=== PATIENT | female | born 1995 | race African-American/Black ===

== ENCOUNTER 2021-12-20 22:09 | Emergency (ER) | payer OTHER, SELFPAY ==
[2021-12-21] MEDS ORDERED: METRONIDAZOLE 500mg IVPB 500 MG/100 ML BAG IV ONE (00:08)
[2021-12-21] MEDS ORDERED: Levofloxacin 750mg IV 750 MG/150 ML BAG IV ONE (00:08)
[2021-12-21] MEDS ORDERED: ONDANSETRON 4 MG/2 ML VIAL ONE (00:08)
[2021-12-21] MEDS ORDERED: MORPHINE 2 MG/ML SYR ONE (00:08)
[2021-12-21] MEDS ORDERED: NA CHLORIDE 0.9% 1,000 ML ONE (00:08)
[2021-12-21 00:20] LABS: Urine Blood 2+ (Negative); Urine Glucose Negative (Negative); Urine Protein Negative (Negative); Urine Specific Gravity <=1.005 (1.005-1.030); Urine pH 5.5 (5.0-7.0)
[2021-12-21] MEDS ORDERED: LIDOCAINE 1% W/EPI 1:100,000 MDV 50 ML VIAL ONE (00:44)
[2021-12-21 01:02] LABS: Absolute Lymphocytes (CBC) 2.5 K/uL (0.7-4.9); Hematocrit 23.1 % (36.0-45.0); Lymphocytes % 14.8 % (15.3-44.8); RBC Red Blood Cell Count 4.04 M/uL (3.86-4.86)
[2021-12-21 01:22] LABS: Albumin 3.7 g/dL (3.4-5.0); Bilirubin Total 0.4 mg/dL (0.2-1.0); Protein, Total 8.7 g/dL (6.4-8.2)
[2021-12-21 01:28] LABS: Potassium 2.9 mmol/L (3.5-5.1)
--- NOTE | 2021-12-21 01:46 | ER ---
Nurse's Notes [facility] Name: Tiffany Clarke Age: 26 yrs Sex: Female : 1995 Arrival Date: 12/20/2021 Time: 22:12 Bed 19 Private MD: Diagnosis: Pilonidal cyst with abscess;Iron deficiency anemia, unspecified;Hypokalemia Presentation: 12/20 22:17 Chief complaint: Patient states: Cyst on tailbone. C/O severe pain. Coronavirus screen: ld1 At this time, the client does not indicate any symptoms associated with coronavirus-19. Ebola Screen: No symptoms or risks identified at this time. Initial Sepsis Screen: Does the patient meet any 2 criteria? No. Patient's initial sepsis screen is negative. Does the patient have a suspected source of infection? No. Patient's initial sepsis screen is negative. Risk Assessment: Do you want to hurt yourself or someone else? Patient reports no desire to harm self or others. Onset of symptoms was December 20, 2021. 22:17 Method Of Arrival: Ambulatory ld1 22:17 Acuity: JAMES 4 ld1 Triage Assessment: 22:18 General: Appears in no apparent distress. uncomfortable, Behavior is calm, cooperative, ld1 appropriate for age. Pain: Complains of pain in coccyx Pain does not radiate. Pain currently is 8 out of 10 on a pain scale. EENT: No signs and/or symptoms were reported regarding the EENT system. Neuro: Level of Consciousness is awake, alert, obeys commands, Oriented to person, place, time, situation. Respiratory: Airway is patent Respiratory effort is even, unlabored. Derm: Abscess located on buttocks. 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 - Social history:: Smoking status: Reported history of juuling and/or vaping. Patient/guardian denies using alcohol. - Family history:: not pertinent. Screenin:58 Abuse screen: Denies threats or abuse. Denies injuries from another. Nutritional kd3 screening: No deficits noted. Tuberculosis screening: No symptoms or risk factors identified. Fall Risk Vital Signs: 22:17 BP 124 / 82; Pulse 167; Resp 18; Temp 98.3(TE); Pulse Ox 99% on R/A; Weight 95.25 kg; ld1 Height 5 ft. 3 in. (160.02 cm); Pain 8/10; 12/21 00:15 Pulse 82; kd3 12/20 22:17 Body Mass Index 37.20 (95.25 kg, 160.02 cm) ld1 ED Course: 12/20 22:12 Patient arrived in ED. jj6 22:18 Triage completed. ld1 22:18 Arm band placed on right wrist. ld1 23:43 Gianluca Enrique MD is Attending Physician. elpidio 23:58 Hannah Morton, DIANN is Primary Nurse. kd3 23:58 Inserted saline lock: 20 gauge in left antecubital area, using aseptic technique. Blood kd3 collected. 23:59 Patient has correct armband on for positive identification. kd3 12/21 01:28 Notified ED physician of a critical lab result(s). Hgb 6.8, Potassium 2.9. lp1 01:45 Dawson Urban MD is Referral Physician. elpidio 01:45 Beverly De La Paz MD is Referral Physician. elpidio 01:45 Carole Arzola MD is Referral Physician. elpidio 02:21 No provider procedures requiring assistance completed. IV discontinued, intact, sm5 bleeding controlled, No redness/swelling at site. Pressure dressing applied. Administered Medications: 00:13 Drug: Zofran (Ondansetron) 4 mg Route: IVP; Site: left antecubital; kd3 00:14 Drug: NS 0.9% 1000 ml Route: IV; Rate: 1 bolus; Site: left antecubital; kd3 00:14 Drug: Flagyl (metroNIDAZOLE) 500 mg Volume: 100 ml; Route: IVPB; Rate: 200 ml/hr; kd3 Infused Over: 30 mins; Site: left antecubital; 00:14 Drug: morphine 2 mg Route: IVP; Site: left antecubital; kd3 00:29 Drug: levofloxacin 750 mg Volume: 150 ml; Route: IVPB; Infused Over: 90 mins; Site: kd3 left antecubital; 02:11 Drug: Potassium Effervescent Tablet 50 mEq Route: PO; kd3 Medication: 00:34 VIS not applicable for this client. kd3 Outcome: 01:45 Discharge ordered by . elpidio 02:21 Discharged to home ambulatory. 5 02:21 Condition: stable 02:21 Discharge instructions given to patient, Instructed on discharge instructions, follow up and referral plans. medication usage, Demonstrated understanding of instructions, follow-up care, medications, Prescriptions given X 4. 02:21 Patient left the ED. sm5 Signatures: Gianluca Enrique MD MD cha Pena, Laura, RN RN lp1 Deepa Rose RN RN ld1 Desiree Bhardwaj Kyli RN RN kd3 Kaya Naranjo RN RN sm5
--- NOTE | 2021-12-21 01:46 | EDPHYS ---
Physician Documentation [facility] Name: Tiffany Clarke Age: 26 yrs Sex: Female : 1995 Arrival Date: 12/20/2021 Time: 22:12 Bed 19 Private MD: ED Physician Gianluca Enrique HPI: 12/21 00:42 This 26 yrs old Black Female presents to ER via Ambulatory with complaints of Cyst. elpidio 00:42 The patient presents with an abscess of the coccyx. Description: The affected area is elpidio moderate sized, localized, draining. Onset: The symptoms/episode began/occurred 5 day(s) ago. Possible cause(s): unknown. Associated signs and symptoms: Pertinent positives: drainage, erythema. Modifying factors: the symptoms are alleviated by nothing, the symptoms are aggravated by nothing. Severity of symptoms: At their worst the symptoms were moderate, in the emergency department the symptoms are unchanged. The patient has not experienced similar symptoms in the past. 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 - Social history:: Smoking status: Reported history of juuling and/or vaping. Patient/guardian denies using alcohol. - Family history:: not pertinent. ROS: 12/21 00:42 Constitutional: Negative for fever, chills, and weight loss, Eyes: Negative for injury, elpidio pain, redness, and discharge, ENT: Negative for injury, pain, and discharge, Neck: Negative for injury, pain, and swelling, Cardiovascular: Negative for chest pain, palpitations, and edema, Respiratory: Negative for shortness of breath, cough, wheezing, and pleuritic chest pain, Abdomen/GI: Negative for abdominal pain, nausea, vomiting, diarrhea, and constipation, Back: Negative for injury and pain, : Negative for injury, bleeding, discharge, and swelling, MS/Extremity: Negative for injury and deformity, Neuro: Negative for headache, weakness, numbness, tingling, and seizure, Psych: Negative for depression, anxiety, suicide ideation, homicidal ideation, and hallucinations, Allergy/Immunology: Negative for hives, rash, and allergies, Endocrine: Negative for neck swelling, polydipsia, polyuria, polyphagia, and marked weight changes, Hematologic/Lymphatic: Negative for swollen nodes, abnormal bleeding, and unusual bruising. Skin: Positive for swelling, of the coccyx. Exam: 00:42 Constitutional: This is a well developed, well nourished patient who is awake, alert, elpidio and in no acute distress. Head/Face: Normocephalic, atraumatic. Eyes: Pupils equal round and reactive to light, extra-ocular motions intact. Lids and lashes normal. Conjunctiva and sclera are non-icteric and not injected. Cornea within normal limits. Periorbital areas with no swelling, redness, or edema. ENT: Nares patent. No nasal discharge, no septal abnormalities noted. Tympanic membranes are normal and external auditory canals are clear. Oropharynx with no redness, swelling, or masses, exudates, or evidence of obstruction, uvula midline. Mucous membranes moist. Neck: Trachea midline, no thyromegaly or masses palpated, and no cervical lymphadenopathy. Supple, full range of motion without nuchal rigidity, or vertebral point tenderness. No Meningismus. Chest/axilla: Normal chest wall appearance and motion. Nontender with no deformity. No lesions are appreciated. Cardiovascular: Regular rate and rhythm with a normal S1 and S2. No gallops, murmurs, or rubs. Normal PMI, no JVD. No pulse deficits. Respiratory: Lungs have equal breath sounds bilaterally, clear to auscultation and percussion. No rales, rhonchi or wheezes noted. No increased work of breathing, no retractions or nasal flaring. Abdomen/GI: Soft, non-tender, with normal bowel sounds. No distension or tympany. No guarding or rebound. No evidence of tenderness throughout. Back: No spinal tenderness. No costovertebral tenderness. Full range of motion. MS/ Extremity: Pulses equal, no cyanosis. Neurovascular intact. Full, normal range of motion. Neuro: Awake and alert, GCS 15, oriented to person, place, time, and situation. Cranial nerves II-XII grossly intact. Motor strength 5/5 in all extremities. Sensory grossly intact. Cerebellar exam normal. Normal gait. Psych: Awake, alert, with orientation to person, place and time. Behavior, mood, and affect are within normal limits. 00:42 Skin: abscess, that is moderate sized, cellulitis, that is minimal, induration, that is mild is noted, located on the coccyx and gluteal cleft. Vital Signs: 12/20 22:17 BP 124 / 82; Pulse 167; Resp 18; Temp 98.3(TE); Pulse Ox 99% on R/A; Weight 95.25 kg; ld1 Height 5 ft. 3 in. (160.02 cm); Pain 8/; 12/21 00:15 Pulse 82; kd3 12/20 22:17 Body Mass Index 37.20 (95.25 kg, 160.02 cm) ld1 MDM: 12/20 23:43 Patient medically screened. [facility] 12/21 00:42 Differential diagnosis: abscess, cellulitis. Data reviewed: vital signs, nurses notes, [facility] lab test result(s), CBC, electrolytes, hepatic panel. 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 Test interpretation: by ED physician or midlevel provider:. Counseling: I had a detailed discussion with the patient and/or guardian regarding: the historical points, exam findings, and any diagnostic results supporting the discharge/admit diagnosis, lab results, radiology results, the need for outpatient follow up, for definitive care, a general surgeon. 12/20 23:46 Order name: CBC with Diff [facility] 12/20 23:46 Order name: Comprehensive Metabolic Panel; Complete Time: 01:46 [facility] 12/21 00:19 Order name: Test, Serum; Complete Time: 01:07 2 12/21 00:20 Order name: Urine Dipstick-Ancillary; Complete Time: 01:07 [facility] 12/21 01:11 Order name: Manual Differential [facility] 12/20 23:46 Order name: Urine Dipstick-Ancillary (obtain specimen); Complete Time: 00:15 [facility] 12/20 23:46 Order name: Urine Test (obtain specimen); Complete Time: 00:15 [facility] 12/21 01:48 Order name: PO challenge: [place]; Complete Time: 02:11 [facility] Administered Medications: 00:13 Drug: Zofran (Ondansetron) 4 mg Route: IVP; Site: left antecubital; kd3 00:14 Drug: NS 0.9% 1000 ml Route: IV; Rate: 1 bolus; Site: left antecubital; kd3 00:14 Drug: Flagyl (metroNIDAZOLE) 500 mg Volume: 100 ml; Route: IVPB; Rate: 200 ml/hr; kd3 Infused Over: 30 mins; Site: left antecubital; 00:14 Drug: morphine 2 mg Route: IVP; Site: left antecubital; kd3 00:29 Drug: levofloxacin 750 mg Volume: 150 ml; Route: IVPB; Infused Over: 90 mins; Site: kd3 left antecubital; 02:11 Drug: Potassium Effervescent Tablet 50 mEq Route: PO; kd3 Disposition Summary: 12/21/21 01:45 Discharge Ordered Location: Home elpidio Problem: new elpidio Symptoms: have improved elpidio Condition: Stable elpidio Diagnosis - Pilonidal cyst with abscess elpidio - Iron deficiency anemia, unspecified elpidio - Hypokalemia eplidio Followup: elpidio - With: Private Physician - When: 2 - 3 days - Reason: Recheck today's complaints, Re-evaluation by your physician Followup: elpidio - With: - When: 2 - 3 days - Reason: Recheck today's complaints, Re-evaluation by your physician Followup: elpidio - With: - When: 2 - 3 days - Reason: Recheck today's complaints, Re-evaluation by your physician Followup: elpidio - With: Carole Arzola MD - When: 2 - 3 days - Reason: Recheck today's complaints, Re-evaluation by your physician Discharge Instructions: - Discharge Summary Sheet elpidio - Skin Abscess elpidio - Iron Deficiency Anemia, Adult elpidio - Anemia elpidio - Iron-Rich Diet elpidio - Potassium Content of Foods elpidio - Pilonidal Cyst elpidio - Skin Abscess, [id number] elpidio - Pilonidal Cyst Drainage, Care After elpidio - Incision and Drainage, Care After elpidio - Pilonidal Cyst Drainage elpidio - Iron Deficiency Anemia, Adult, [id number] elpidio - Hypokalemia elpidio Forms: - Medication Reconciliation Form elpidio - Thank You Letter elpidio - Antibiotic Education elpidio - Prescription Opioid Use elpidio Prescriptions: - Ferrous Sulfate 325 mg (65 mg Iron) Oral Tablet - take 1 tablet by ORAL route every 8 hours; 90 tablet; Refills: 0, Product elpidio Selection Permitted - Flagyl 500 mg Oral Tablet - take 1 tablet by ORAL route every 8 hours for 10 days; 30 tablet; Refills: 0, [facility] Product Selection Permitted - levofloxacin 750 mg Oral Tablet - take 1 tablet by ORAL route once daily; 9 tablet; Refills: 0, Product Selection elpidio Permitted - Tylenol-Codeine #3 300 mg-30 mg Oral - take 2 tablet by ORAL route every 6 hours; 20 tablet; Refills: 0, Product elpidio Selection Permitted Signatures: Dispatcher [employer] Gianluca Kan MD MD cha Attema, Lee, [employer] Deepa Rose, RN RN ld1 Hannha Morton, RN RN kd3
[2021-12-21 02:10] LABS: Blood Morphology Comment NOTED (NOT SEEN); Hypochromasia 3+; Platelet Estimate ADEQ
[2021-12-21] MEDS ORDERED: POTASSIUM 25 MEQ EFFERV TAB ONE (02:10)
[2021-12-21 04:02] VITALS: BP 124/82; TEMP 98.3; O2SAT 99
== END 2021-12-21 02:21 | disposition home or self-care (01) ==
LOC: ER 22:09
DX: L05.01 Pilonidal cyst with abscess (principal); D50.9 Iron deficiency anemia, unspecified; E87.6 Hypokalemia
CPT/HCPCS: 85025; 36415; 84703; 81003; 80053; 96375; 96374; 99284; J2270; J7030; J3490; J2405